=== PATIENT | female | born 1960 | race Caucasian/White ===

== ENCOUNTER → 2016-08-29 | Outpatient (CLI) | payer MEDICARE, OTHER | LOC: WI 15:42 | PROVIDERS: ATTEND Internal Medicine Medical Oncology | DX: Z12.31 Encounter for screening mammogram for malignant neoplasm of breast (principal) | CPT/HCPCS: 77067; G0202 ==

== ENCOUNTER → 2017-01-23 | Outpatient (CLI) | payer MEDICARE, OTHER ==
[2017-01-23 16:12] LABS: ABSOLUTE EOSINOPHILS # (AUTO) 0.2 10^3/uL (0.0-0.6); ABSOLUTE LYMPHOCYTES (AUTO) 1.1 10^3/uL (0.5-4.7); ABSOLUTE MONOCYTES (AUTO) 0.4 10^3/uL (0.1-1.4); ABSOLUTE NEUT (AUTO) 4.5 10^3/uL (1.7-8.2); BASOPHILS % (AUTO) 0.6 % (0-2); EOSINOPHILS % (AUTO) 2.6 % (0-6); HEMATOCRIT 36.6 % (36.0-47.0); HEMOGLOBIN 11.7 g/dL (12.0-15.5); HGB HCT DIFFERENCE -1.5; LYMPHOCYTES % (AUTO) 17.1 % (13-45); MEAN CORPUSCULAR HEMOGLOBIN 23.2 pg (27.0-33.4); MEAN CORPUSCULAR HGB CONC 31.9 g/dL (32.0-36.0); MEAN CORPUSCULAR VOLUME 73 fl (80-97); MONOCYTES % (AUTO) 7.1 % (3-13); RED BLOOD COUNT 5.04 10^6/uL (3.72-5.28); RED CELL DISTRIBUTION WIDTH 18.3 % (11.5-14.0); SEGMENTED NEUTROPHILS % (AUTO) 72.6 % (42-78); WHITE BLOOD COUNT 6.2 10^3/uL (4.0-10.5)
[2017-01-23 16:38] LABS: ALANINE AMINOTRANSFERASE 22 U/L (9-52); ALBUMIN 3.5 g/dL (3.5-5.0); ALKALINE PHOSPHATASE 107 U/L (38-126); ASPARTATE AMINO TRANSFERASE 35 U/L (14-36); BILIRUBIN,DIRECT 0.3 mg/dL (0.0-0.4); BILIRUBIN,TOTAL 0.5 mg/dL (0.2-1.3); BLOOD UREA NITROGEN 15 mg/dL (7-20); CREATININE RESULT 0.59 mg/dL (0.52-1.25); TOTAL PROTEIN 5.7 g/dL (6.3-8.2)
== END ==
LOC: GHH 16:05
PROVIDERS: ATTEND Family Medicine
DX: R78.81 Bacteremia (principal)
CPT/HCPCS: 80076; 82565; 84520; 85025

== ENCOUNTER → 2017-03-06 | Outpatient (CLI) | payer MEDICARE, OTHER ==
[2017-03-06 17:05] LABS: ABSOLUTE BASOPHILS # (AUTO) 0.1 10^3/uL (0.0-0.2); ABSOLUTE EOSINOPHILS # (AUTO) 0.2 10^3/uL (0.0-0.6); ABSOLUTE LYMPHOCYTES (AUTO) 1.3 10^3/uL (0.5-4.7); ABSOLUTE MONOCYTES (AUTO) 0.5 10^3/uL (0.1-1.4); ABSOLUTE NEUT (AUTO) 5.8 10^3/uL (1.7-8.2); BASOPHILS % (AUTO) 1.2 % (0-2); EOSINOPHILS % (AUTO) 2.1 % (0-6); HEMATOCRIT 32.3 % (36.0-47.0); HGB HCT DIFFERENCE -2.3; MEAN CORPUSCULAR HEMOGLOBIN 22.4 pg (27.0-33.4); MEAN CORPUSCULAR HGB CONC 31.1 g/dL (32.0-36.0); MEAN CORPUSCULAR VOLUME 72 fl (80-97); MONOCYTES % (AUTO) 6.9 % (3-13); RED BLOOD COUNT 4.49 10^6/uL (3.72-5.28); RED CELL DISTRIBUTION WIDTH 20.8 % (11.5-14.0); SEGMENTED NEUTROPHILS % (AUTO) 73.8 % (42-78); WHITE BLOOD COUNT 7.8 10^3/uL (4.0-10.5)
[2017-03-06 17:24] LABS: BLOOD UREA NITROGEN 11 mg/dL (7-20); CREATININE RESULT 0.55 mg/dL (0.52-1.25)
== END ==
LOC: RAD 16:51
PROVIDERS: ATTEND Surgery Plastic and Reconstructive Surgery
DX: M86.9 Osteomyelitis, unspecified (principal); T81.4XXA Infection following a procedure, initial encounter
CPT/HCPCS: 36415; 80202; 82565; 84520; 85025

== ENCOUNTER 2017-03-10 17:26 | Emergency (ER) | payer MEDICARE, OTHER ==
--- NOTE | 2017-03-10 20:03 | ER Document Report ---
ED General - General Chief Complaint: Other Stated Complaint: MEDICAL PORT ISSUES Time Seen by Provider: 03/10/17 19:18 Mode of Arrival: Ambulatory Information source: Patient TRAVEL OUTSIDE OF THE [place] IN LAST 30 DAYS: No - HPI Patient complains to provider of: Port-A-Cath malfunction Onset: This afternoon Onset/Duration: Sudden Quality of pain: No pain Notes: Patient is a 56-year-old female with a history of brain cancer who recently had brain surgery and is actively on chemo, who presents to the emergency room today stating that the home health nurse came out today and tried to change the needle access to her port and was unable to do so, advised her to come to the emergency room for evaluation, she denies any complaints at present time, she does report mild pain at the exit site to the port as they tried so many times to re-stick her today - Related Data Allergies/Adverse Reactions: codeine [Codeine] Allergy (Verified 03/10/17 17:30) morphine Allergy (Verified 03/10/17 17:30) Past Medical History - General Information source: Patient - Social History Smoking Status: Unknown if Ever Smoked Family History: Reviewed & Not Pertinent Patient has suicidal ideation: No Patient has homicidal ideation: No - Past Medical History Cardiac Medical History: Denies: Hx Heart Attack, Hx Hypertension Pulmonary Medical History: Denies: Hx Asthma Neurological Medical History: Denies: Hx Cerebrovascular Accident, Hx Seizures Renal/ Medical History: Denies: Hx Peritoneal Dialysis GI Medical History: Denies: Hx Hepatitis, Hx Hiatal Hernia, Hx Ulcer Infectious Medical History: Denies: Hx Hepatitis Past Surgical History: Reports: Hx Breast Surgery, Hx Mastectomy - lumpectomy, RT. Denies: Hx Open Heart Surgery, Hx Pacemaker - Immunizations Hx Diphtheria, Pertussis, Tetanus Vaccination: Yes Review of Systems - Review of Systems Constitutional: No symptoms reported EENT: No symptoms reported Cardiovascular: No symptoms reported Respiratory: No symptoms reported Gastrointestinal: No symptoms reported Genitourinary: No symptoms reported Female Genitourinary: No symptoms reported Musculoskeletal: No symptoms reported Skin: See HPI Hematologic/Lymphatic: No symptoms reported Neurological/Psychological: No symptoms reported -: Yes All other systems reviewed and negative Physical Exam - Vital signs Vitals: Temp Pulse Resp BP Pulse Ox 98.7 F 80 16 105/81 98 03/10/17 17:30 03/10/17 17:30 03/10/17 17:30 03/10/17 17:30 03/10/17 17:30 - Notes Notes: - General General appearance: Appears well, Alert In distress: None - HEENT Head: Normocephalic, Atraumatic Eyes: Normal Conjunctiva: Normal Extraocular movements intact: Yes Eyelashes: Normal Pupils: PERRL - Respiratory Respiratory status: No respiratory distress - Cardiovascular Rhythm: Regular - Abdominal Inspection: Normal - Back Back: Normal - Extremities General upper extremity: Normal inspection General lower extremity: Normal inspection - Neurological Neuro grossly intact: Yes Orientation: AAOx4 [place] Coma Scale Eye Opening: Spontaneous [place] Coma Scale Verbal: Oriented [place] Coma Scale Motor: Obeys Commands Gali Coma Scale Total: 15 - Psychological Associated symptoms: Normal affect, Normal mood - Skin Skin Temperature: Warm Skin Moisture: Dry Skin Color: Normal - Respiratory Respiratory status: Other - Subcutaneous Port-A-Cath noted in left anterior chest wall, small puncture wound overlying it, mild tenderness, no swelling, no erythema, no active bleeding or drainage Course - Re-evaluation Re-evalutation: 03/10/17 21:47 Nursing staff was able to access patient's port appropriately, saline was flushed through without difficulty, however were unable to draw blood off of it , however patient's port is functioning appropriately for her to receive medications at home, she was therefore discharged with instructions for follow- up and advised to return if any additional concerns, patient acknowledges understanding and agreement with this plan - Vital Signs Vital signs: Temp Pulse Resp BP Pulse Ox 98.5 F 75 18 110/72 100 03/10/17 20:07 03/10/17 20:07 03/10/17 20:07 03/10/17 20:07 03/10/17 20:07 Discharge - Discharge Clinical Impression: Portacath in place Condition: Stable Disposition: HOME, SELF-CARE Instructions: Subcutaneous IV Port Placement ([facility]) Additional Instructions: Follow up with your primary care provider in one to 2 days. Return to the emergency room immediately if symptoms worsen or any additional concerns.
[2017-03-10 20:08] VITALS: BP 110/72
== END 2017-03-10 20:06 | disposition home or self-care (01) ==
LOC: ER 17:26
DX: Z45.2 Encounter for adjustment and management of vascular access device (principal); C71.9 Malignant neoplasm of brain, unspecified; Z98.890 Other specified postprocedural states; Z90.11 Acquired absence of right breast and nipple; Z88.6 Allergy status to analgesic agent
CPT/HCPCS: 36591; 99283

== ENCOUNTER → 2017-04-12 | Outpatient (CLI) | payer MEDICARE, OTHER ==
--- NOTE | 2017-04-12 17:50 | RADIOLOGY REPORT (SQ) ---
EXAM DESCRIPTION: MRI HEAD COMBO COMPLETED DATE/TIME: 04/12/2017 5:34 pm REASON FOR STUDY: BRAIN METASTASES C79.31 SECONDARY MALIGNANT NEOPLASM OF BRAIN COMPARISON: 04/25/2016, 11/17/2015, 04/09/2014 MRI brain TECHNIQUE: Multiplanar imaging includes noncontrasted T1, T2, FLAIR, diffusion with ADC map and post gadolinium contrast T1 sequences. Images stored on PACS. CONTRAST TYPE AND DOSE: 20 mL Multihance. RENAL FUNCTION: GFR > 60. LIMITATIONS: None. FINDINGS: ANATOMY: No congenital anomalies. Normal vascular flow voids. Pituitary fossa normal. CSF SPACES: Normal in size and contour. No hemorrhage. CEREBRUM: Since the prior brain MRI 04/17/2016, patient has undergone left occipital craniotomy with resection of all 5 x 3 cm left occipital brain parenchymal metastatic lesion. On the current exam, t here is now diffuse dural enhancement and a thick rind of tumor in the operative cavity measuring abo ut 1 cm in thickness. There is a left temporal lobe metastatic lesion which was 2.8 x 2.4 cm in size on 04/25/2016. This n ow measures 6.4 x 3.9 cm in size, with vasogenic edema. Mild local mass effect with flattening of th e left temporal horn lateral ventricle. No midline shift. A right frontal brain parenchymal metastatic lesion was 1.3 x 1.1 cm on 04/25/2016. This now measure s 2.5 x 2.3 cm in size, with surrounding vasogenic edema and mild local mass effect with sulcal effac ement. No other brain parenchymal metastatic lesions are identified. Normal enhancement of the dural venous sinuses and vascular structures. POSTERIOR FOSSA: No signal alteration. No hemorrhage. No edema, masses, or mass effect. Internal arnel tory canals, cerebellopontine angles, mastoids normal. No enhancing lesions. No abnormal enhancement post contrast. DIFFUSION IMAGING: Negative for acute or subacute infarction. ORBITS: No masses. Globes normal. PARANASAL SINUSES: No fluid levels. Mucosa normal. OTHER: No other significant finding. IMPRESSION: Progression of intracranial disease as above. EVIDENCE OF ACUTE STROKE: NO. TECHNICAL DOCUMENTATION: JOB ID: [id number] [employer]- All Rights Reserved
== END ==
LOC: RAD 15:54
PROVIDERS: ATTEND Internal Medicine Medical Oncology
DX: C79.31 Secondary malignant neoplasm of brain (principal)
CPT/HCPCS: 70553

== ENCOUNTER 2017-04-19 04:37 | Emergency (ER) | payer MEDICARE, OTHER ==
[2017-04-19] MEDS ORDERED: HYDROMORPHONE HCL INJ/PF 2 MG/ML AMPULE IV ONE (05:09)
[2017-04-19] MEDS ORDERED: NORMAL SALINE 1000 ML 1,000 ML IV ONE (05:11)
--- NOTE | 2017-04-19 05:13 | ER Document Report ---
ED Medical Screen (RME) - General Chief Complaint: Abdominal Pain Stated Complaint: NAUSEA/VOMITING Time Seen by Provider: 04/19/17 05:08 Notes: 56-year-old female comes by EMS for chief complaint of upper abdominal pain, specifically in her right upper abdomen that radiates around to her back. She states she has had intermittent sharp pains with vomiting episodes for the past 4 days. Only surgical history is brain tumor removal. History of breast cancer with brain metastasis. She is not on chemotherapy or radiation. She denies fever. She denies black or bloody stools. TRAVEL OUTSIDE OF THE [place] IN LAST 30 DAYS: No - Related Data Allergies/Adverse Reactions: codeine [Codeine] Allergy (Verified 03/10/17 17:30) morphine Allergy (Verified 03/10/17 17:30) Past Medical History - Social History Chew tobacco use (# tins/day): No Frequency of alcohol use: None Drug Abuse: None - Past Medical History Cardiac Medical History: Denies: Hx Heart Attack, Hx Hypertension Pulmonary Medical History: Denies: Hx Asthma Neurological Medical History: Denies: Hx Cerebrovascular Accident, Hx Seizures Renal/ Medical History: Denies: Hx Peritoneal Dialysis GI Medical History: Denies: Hx Hepatitis, Hx Hiatal Hernia, Hx Ulcer Infectious Medical History: Denies: Hx Hepatitis Past Surgical History: Reports: Hx Breast Surgery, Hx Mastectomy - lumpectomy, RT. Denies: Hx Open Heart Surgery, Hx Pacemaker - Immunizations Hx Diphtheria, Pertussis, Tetanus Vaccination: Yes Physical Exam - Vital signs Vitals: Temp Pulse Resp BP Pulse Ox 97.4 F 61 18 128/77 H 98 04/19/17 04:57 04/19/17 04:57 04/19/17 04:57 04/19/17 04:57 04/19/17 04:57 - General General appearance: Appears well In distress: None - Abdominal Tenderness: Tender - Tender in the epigastric and right upper quadrant areas on abdominal exam, otherwise unremarkable abdominal exam Course - Vital Signs Vital signs: Temp Pulse Resp BP Pulse Ox 97.4 F 61 18 128/77 H 98 04/19/17 04:57 04/19/17 04:57 04/19/17 04:57 04/19/17 04:57 04/19/17 04:57
[2017-04-19 05:35] LABS: ABSOLUTE BASOPHILS # (AUTO) 0.1 10^3/uL (0.0-0.2); ABSOLUTE EOSINOPHILS # (AUTO) 0.2 10^3/uL (0.0-0.6); ABSOLUTE LYMPHOCYTES (AUTO) 1.1 10^3/uL (0.5-4.7); ABSOLUTE MONOCYTES (AUTO) 0.8 10^3/uL (0.1-1.4); ABSOLUTE NEUT (AUTO) 10.3 10^3/uL (1.7-8.2); BASOPHILS % (AUTO) 0.6 % (0-2); EOSINOPHILS % (AUTO) 1.6 % (0-6); HEMATOCRIT 37.8 % (36.0-47.0); HEMOGLOBIN 12.5 g/dL (12.0-15.5); HGB HCT DIFFERENCE -0.3; MEAN CORPUSCULAR HEMOGLOBIN 24.8 pg (27.0-33.4); MEAN CORPUSCULAR HGB CONC 33.2 g/dL (32.0-36.0); MEAN CORPUSCULAR VOLUME 75 fl (80-97); MONOCYTES % (AUTO) 6.1 % (3-13); RED BLOOD COUNT 5.06 10^6/uL (3.72-5.28); RED CELL DISTRIBUTION WIDTH 19.9 % (11.5-14.0); SEGMENTED NEUTROPHILS % (AUTO) 82.7 % (42-78); WHITE BLOOD COUNT 12.5 10^3/uL (4.0-10.5)
[2017-04-19 05:53] LABS: ALANINE AMINOTRANSFERASE 35 U/L (9-52); ALBUMIN 3.4 g/dL (3.5-5.0); ALKALINE PHOSPHATASE 119 U/L (38-126); ANION GAP 12 (5-19); ASPARTATE AMINO TRANSFERASE 29 U/L (14-36); BILIRUBIN,DIRECT 0.5 mg/dL (0.0-0.4); BILIRUBIN,TOTAL 0.6 mg/dL (0.2-1.3); BLOOD UREA NITROGEN 14 mg/dL (7-20); CALCIUM 9.4 mg/dL (8.4-10.2); CARBON DIOXIDE 24 mmol/L (22-30); CHLORIDE 104 mmol/L (98-107); GLUCOSE 114 mg/dL (75-110); POTASSIUM 4.2 mmol/L (3.6-5.0); SODIUM 140.4 mmol/L (137-145); TOTAL PROTEIN 5.6 g/dL (6.3-8.2)
--- NOTE | 2017-04-19 06:55 | ER Document Report ---
ED GI/ - General Mode of Arrival: Ambulatory Information source: Patient TRAVEL OUTSIDE OF THE [place] IN LAST 30 DAYS: No <FARTUN LOWE - Last Filed: 04/19/17 10:17> <JIM SHAHID - Last Filed: 04/19/17 17:28> <LEANN KILPATRICK - Last Filed: 04/20/17 06:20> - General Chief Complaint: Abdominal Pain Stated Complaint: NAUSEA/VOMITING Time Seen by Provider: 04/19/17 05:08 Notes: Patient is a 56 year old female with a PMH significant for breast cancer with metastasis to the brain and liver that presents to the emergency department today with complaints of right upper quadrant abdominal pain. Patient has some difficulty explaining things consistent with brain metastases so some history is being given by her mother at bedside. 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 Patient's chemotherapy was stopped in May secondary to this infection, and her wound not healing. Mother at bedside states that the patient has had intermittent abdominal pain off and on for the last week and she vomited once 1 week ago. Patient states she had nausea now but no vomiting. (FARTUN LOWE) - Related Data Allergies/Adverse Reactions: codeine [Codeine] Allergy (Verified 03/10/17 17:30) morphine Allergy (Verified 03/10/17 17:30) Home Medications: Current Home Medications Cranberry Conc/C/Bacill Coag [Cranberry Tablet] 1 each PO BID 04/19/17 [History] Ferrous Sulfate 65 mg PO DAILY 04/19/17 [History] Past Medical History - General Information source: Patient - Social History Smoking Status: Never Smoker Cigarette use (# per day): No Chew tobacco use (# tins/day): No Frequency of alcohol use: None Drug Abuse: None Lives with: Family Family History: Reviewed & Not Pertinent Patient has suicidal ideation: No Patient has homicidal ideation: No - Medical History Medical History: Negative Malignancy Medical History: Reports: Other - History of breast cancer with metastasis to the brain, liver Past Surgical History: Reports: Hx Breast Surgery, Hx Mastectomy - lumpectomy, RT, Other - Brain tumor debulking, cranial bone flap removal x2 - Immunizations Hx Diphtheria, Pertussis, Tetanus Vaccination: Yes <FARTUN LOWE - Last Filed: 04/19/17 10:17> Review of Systems - Review of Systems Constitutional: No symptoms reported EENT: No symptoms reported Cardiovascular: No symptoms reported Respiratory: No symptoms reported Gastrointestinal: See HPI, Abdominal pain, Nausea. denies: Vomiting Genitourinary: No symptoms reported Female Genitourinary: No symptoms reported Musculoskeletal: No symptoms reported Skin: No symptoms reported Hematologic/Lymphatic: No symptoms reported Neurological/Psychological: No symptoms reported -: Yes All other systems reviewed and negative <FARTUN LOWE - Last Filed: 04/19/17 10:17> Physical Exam <FARTUN LOWE - Last Filed: 04/19/17 10:17> <JIM SHAHID - Last Filed: 04/19/17 17:28> <LEANN KILPATRICK - Last Filed: 04/20/17 06:20> - Vital signs Vitals: Resp Pulse Ox 15 100 04/19/17 04:54 04/19/17 04:54 - Notes Notes: Physical Exam: General: Alert, chronically ill appearing. HEENT: Normocephalic. Atraumatic. PERRL. Extraocular movements intact. Oropharynx clear. Bandage around head consistent with healing surgical wound. Neck: Supple. Non-tender. Respiratory: No respiratory distress. Clear and equal breath sounds bilaterally. Cardiovascular: Regular rate and rhythm. Abdominal: Obese. Right upper quadrant tenderness with palpation. No distension. Normal Bowel Sounds. Back: Non-tender. No deformity or step off. Extremities: Moves all four extremities. Upper extremities: Normal inspection. Normal ROM. Lower extremities: Normal inspection. No edema. Normal ROM. Neurological: Normal cognition. AAOx4. Normal speech. Slight difficulty with explaining history consistent with brain metastasis. Psychological: Normal affect. Normal Mood. Skin: Warm. Dry. Normal color. (FARTUN LOWE) Course - Laboratory Result Diagrams: 04/19/17 05:20 04/19/17 05:20 <FARTUN LOWE - Last Filed: 04/19/17 10:17> - Laboratory Result Diagrams: 04/19/17 05:20 04/19/17 05:20 <JIM SHAHID - Last Filed: 04/19/17 17:28> - Laboratory Result Diagrams: 04/19/17 05:20 04/19/17 05:20 - Diagnostic Test Radiology reviewed: Image reviewed, Reports reviewed - Gallbladder ultrasound shows possible sludge or mass obstructing the gallbladder. There is no dilatation of common bile duct or hepatic ducts. HIDA scan showed no uptake into the gallbladder at 1 hour and at 2 hours. This is felt due to complete obstruction of the gallbladder neck. - EKG Interpretation by Me EKG shows normal: Sinus rhythm, [place], Intervals, QRS Complexes, ST-T Waves Rate: Normal - 60 Rhythm: NSR - Consults Dr. Haq Time consulted: 13:50 Consulted provider: other - Requested transfer the patient to another facility due to potential for removal of the gallbladder requiring resection of surrounding tissue if this is a cancerous obstructive process. Dr. Jackson Time consulted: 14:05 Consulted provider: other - We will except on behalf of Dr. Feldman's service at [facility] as an ER to ER transfer. Dr. Odell Ho Time consulted: 14:35 Consulted provider: other - ER physician, will except as an ED to ED transfer. <LEANN KILPATRICK - Last Filed: 04/20/17 06:20> - Re-evaluation Re-evalutation: 04/19/17 17:28 Did not receive sign out on this patient. Patient currently is waiting air transport is currently here. Patient's vital signs are stable patient looks to be in no obvious distress patient looks stable for air transport to [facility]. (JIM SHAHID) - Vital Signs Vital signs: Temp Pulse Resp BP Pulse Ox 97.4 F 61 16 107/61 97 04/19/17 04:57 04/19/17 04:57 04/19/17 17:18 04/19/17 17:18 04/19/17 17:18 - Laboratory Laboratory results interpreted by me: 04/19/17 04/19/17 04/19/17 05:20 05:20 09:10 WBC 12.5 H MCV 75 L MCH 24.8 L RDW 19.9 H Seg Neutrophils % 82.7 H Lymphocytes % 9.0 L Absolute Neutrophils 10.3 H Glucose 114 H Direct Bilirubin 0.5 H Total Protein 5.6 L Albumin 3.4 L Ur Leukocyte Esterase MODERATE H Discharge <FARTUN LOWE - Last Filed: 04/19/17 10:17> <JIM SHAHID - Last Filed: 04/19/17 17:28> <LEANN KILPATRICK - Last Filed: 04/20/17 06:20> - Discharge Clinical Impression: Gallbladder obstruction Condition: Stable Disposition: [place] Referrals: CHRISTOPH WINSTON, FINANCIAL WRITER [Primary Care Provider] - Follow up as needed Scribe Attestation: 04/19/17 08:09 I personally performed the services described in the documentation, reviewed and edited the documentation which was dictated to the scribe in my presence, and it accurately records my words and actions. (LEANN KILPATRICK) Scribe Documentation - Scribe Written by Yonie:: Ana Santiago, 04/19/2017 [id number] acting as scribe for :: Tj <FARTUN LOWE - Last Filed: 04/19/17 10:17>
--- NOTE | 2017-04-19 07:09 | RADIOLOGY REPORT (SQ) ---
EXAM DESCRIPTION: U/S ABDOMEN LIMITED W/O DOP COMPLETED DATE/TIME: 04/19/2017 6:42 am REASON FOR STUDY: RUQ and epigastric pain, vomiting COMPARISON: None. TECHNIQUE: Dynamic and static grayscale images acquired of the abdomen and recorded on PACS. Additio nal selected color Doppler and spectral images recorded. LIMITATIONS: Body habitus. FINDINGS: PANCREAS: No masses. Visualized pancreatic duct normal caliber. Tail is obscured. LIVER: No masses. Hepatic steatosis. LIVER VASCULATURE: Normal directional flow of the main portal vein and hepatic veins. GALLBLADDER: Heterogeneous material/lesion occludes the gallbladder. Based on Doppler ultrasound, th ere is possible small vascularity within the gallbladder. ULTRASOUND-DETECTED MARTINEZ'S SIGN: Negative. INTRAHEPATIC DUCTS AND COMMON DUCT: 0.5 cm diameter CBD and intrahepatic ducts normal caliber. No stacia ling defects. INFERIOR VENA CAVA: Normal flow. AORTA: No aneurysm. RIGHT KIDNEY: Normal size. Normal echogenicity. No solid or suspicious masses. No hydronephrosis. No calcifications. PERITONEAL AND RIGHT PLEURAL SPACE: No ascites or effusions. OTHER: No other significant findings. IMPRESSION: Gallbladder occlusion due to sludge and/ or mass ; cannot exclude a gallbladder malignan cy. Multiphase pre and postcontrast CT of the abdomen recommended. TECHNICAL DOCUMENTATION: JOB ID: [id number] [facility]- All Rights Reserved
[2017-04-19 09:44] LABS: APPEARANCE,URINE CLEAR; BILIRUBIN,URINE NEGATIVE (NEGATIVE); GLUCOSE, URINE NEGATIVE (NEGATIVE); KETONES,URINE NEGATIVE (NEGATIVE); LEUKOCYTE ESTERASE,URINE MODERATE (NEGATIVE); NITRITE,URINE NEGATIVE (NEGATIVE); PROTEIN,URINE NEGATIVE (NEGATIVE); URINE SPECIFIC GRAVITY 1.013; UROBILINOGEN,URINE NEGATIVE mg/dL (<2.0)
--- NOTE | 2017-04-19 13:29 | RADIOLOGY REPORT (SQ) ---
EXAM DESCRIPTION: NM HIDA SCAN COMPLETED DATE/TIME: 04/19/2017 1:05 pm REASON FOR STUDY: obstructed gall bladder COMPARISON: Abdominal ultrasound 04/19/2017 RADIONUCLIDE AND DOSE: DOSAGE RADIONUCLIDE: 5 millicuries Tc99m Mebrofenin. 1 mCi mebrofenin booste r dose. DOSAGE MORPHINE: Not required. The route of agent administration: Intravenous TECHNIQUE: Serial imaging right upper quadrant up to 60 minutes following injection of radionuclide. Patient imaged AP and Right Lateral. There was nonvisualization of gallbladder at 60 minutes. Patient was reinjected, and imaged 90 minut es after the reinjection LIMITATIONS: None. FINDINGS: LIVER: Normal visualization without areas of photopenia. The majority of injected agent c lears the liver by 60 minutes. INTRA-HEPATIC BILE DUCTS: Intrahepatic bile ducts identified by 20 minutes COMMON BILE DUCT: Common bile duct identified by 14 minutes GALLBLADDER: Not visualized on initial 60 minutes. Patient was reinjected with a 1 mCi booster dose, repeat imaging 90 minutes after injection fails to depict the gallbladder. OTHER: No other significant finding. IMPRESSION: Nonvisualization of the gallbladder on initial 60 minutes images and, nonvisualization o f the gallbladder on delayed imaging after a booster dose of mebrofenin. This report was called to Dr. Spencer in the emergency room TECHNICAL DOCUMENTATION: JOB ID: [id number] [employer]- All Rights Reserved
[2017-04-19 16:54] VITALS: BP 107/61
--- NOTE | 2017-04-19 19:34 | EKG REPORT ---
SEVERITY:- NORMAL ECG - SINUS RHYTHM : Confirmed by: Josephine Noe MD 19-Apr-2017 19:32:55
== END 2017-04-19 17:35 | disposition short-term general hospital (02) ==
LOC: ER 04:37
DX: K82.0 Obstruction of gallbladder (principal); R10.9 Unspecified abdominal pain; Z88.6 Allergy status to analgesic agent; Z85.3 Personal history of malignant neoplasm of breast; Z85.841 Personal history of malignant neoplasm of brain
CPT/HCPCS: 93005; 99285; 96361; 96374; 36415; 87086; 83690; 85025; 87088; 80053; 81001; 87186; 76705; 78226; 93010; A9537; J1170; J7030; Q9969

== ENCOUNTER 2017-04-20 22:03 | Emergency (ER) | payer MEDICARE, OTHER ==
[2017-04-20] MEDS ORDERED: ONDANSETRON HCL INJ/PF 4 MG/2 ML SDV IV ONE (23:23)
[2017-04-20] MEDS ORDERED: HYDROMORPHONE HCL INJ/PF 2 MG/ML AMPULE IV ONE (23:23)
[2017-04-20] MEDS ORDERED: NORMAL SALINE 1000 ML 1,000 ML IV ONE (23:23)
[2017-04-20] MEDS ORDERED: CEFTRIAXONE 1 GM/D5W RTU 1 GM/50 ML RTUPB IV ONE (23:23)
--- NOTE | 2017-04-20 23:36 | ER Document Report ---
ED General - General Mode of Arrival: Medic Information source: Patient, Relative TRAVEL OUTSIDE OF THE [place] IN LAST 30 DAYS: No <PEGGY HUTTON - Last Filed: 04/21/17 04:45> <ABRIL MARTIN - Last Filed: 04/21/17 05:07> - General Chief Complaint: Abdominal Pain >50 Stated Complaint: ABDOMINAL PAIN Time Seen by Provider: 04/20/17 22:53 Notes: Patient is a 56 year old female with a history of metastatic breast cancer presents to the emergency department via EMS accompanined by family complaining of abdominal pain with associated symptoms of nausea, vomiting and chills. Patient was last seen in the emergency department yesterday with similar symptoms and a HIDA test was performed. There was found to be a blockage in her gall bladder and the patient was sent to [facility]. Patient was fed, watched, and released from [facility] after not seeing a blockage from another HIDA scan today. At around 18:00 the patient symptoms have returned and worsened. EMS gave patient 8 mg of Zofran prior to arrival. (PEGGY HUTTON) - Related Data Allergies/Adverse Reactions: acetaminophen [From Tylenol] Allergy (Verified 04/20/17 22:13) codeine [Codeine] Allergy (Verified 04/20/17 22:13) morphine Allergy (Verified 04/20/17 22:13) Past Medical History - General Information source: Patient, Relative - Social History Smoking Status: Unknown if Ever Smoked Cigarette use (# per day): No Chew tobacco use (# tins/day): No Smoking Education Provided: No Family History: Reviewed & Not Pertinent Past Surgical History: Reports: Hx Breast Surgery, Hx Mastectomy - lumpectomy, RT, Other - Brain tumor debulking, cranial bone flap removal x2 - Immunizations Hx Diphtheria, Pertussis, Tetanus Vaccination: Yes <PEGGY HUTTON - Last Filed: 04/21/17 04:45> Review of Systems - Review of Systems Constitutional: See HPI, Chills EENT: No symptoms reported Cardiovascular: No symptoms reported Respiratory: No symptoms reported Gastrointestinal: See HPI, Abdominal pain, Nausea, Vomiting Genitourinary: No symptoms reported Female Genitourinary: No symptoms reported Musculoskeletal: No symptoms reported Skin: No symptoms reported Hematologic/Lymphatic: No symptoms reported Neurological/Psychological: No symptoms reported -: Yes All other systems reviewed and negative <PEGGY HUTTON - Last Filed: 04/21/17 04:45> Physical Exam <PEGGY HUTTON - Last Filed: 04/21/17 04:45> <ABRIL MARTIN - Last Filed: 04/21/17 05:07> - Vital signs Vitals: Temp Pulse Resp BP Pulse Ox 97.6 F 58 L 24 H 134/77 H 100 04/20/17 22:13 04/20/17 22:13 04/20/17 22:13 04/20/17 22:13 04/20/17 22:13 - Notes Notes: GENERAL: Alert, Appears uncomfortable. HEAD: Scarring on skull is consistent to surgical history. EYES: Pupils equal, round, and reactive to light. Extraocular movements intact. ENT: Oral mucosa moist, tongue midline. NECK: Full range of motion. Supple. Trachea midline. LUNGS: Clear to auscultation bilaterally, no wheezes, rales, or rhonchi. No respiratory distress. HEART: Regular rate and rhythm. No murmurs, gallops, or rubs. ABDOMEN: RUQ tender to palpation. Negative Schneider's Sign. Non-distended. Bowel sounds present in all 4 quadrants. EXTREMITIES: Moves all 4 extremities spontaneously. No edema, radial and dorsalis pedis pulses 2/4 bilaterally. No cyanosis. NEUROLOGICAL: Alert and oriented x3. Normal speech. PSYCH: Normal affect, normal mood. SKIN: Warm, dry, normal turgor. Scarring on skull is consistent to surgical history. (PEGGY HUTTON) Course - Laboratory Result Diagrams: 04/20/17 23:50 04/20/17 23:50 - Consults Dr. Roger Time consulted: 02:18 - Rusty operations inspector, recommended patient be returned to [facility] due to maglignat mass obstruction in the bile duct. Dr. English Time consulted: 02:34 - States patient was seen with the Acute Care Trauma Team. Agrees that patient should be transferred. Dr. Forde Time consulted: 03:00 - Dr. Forde agrees that patient needs to be transferred ED to ED. Also stated needed to talk to physcian at this time. <PEGGY HUTTON - Last Filed: 04/21/17 04:45> - Laboratory Result Diagrams: 04/20/17 23:50 04/20/17 23:50 <ABRIL MARTIN - Last Filed: 04/21/17 05:07> - Re-evaluation Re-evalutation: 04/21/17 03:16 CBC shows persistent but stable leukocytosis of 12.3, platelets normal, CMP shows slightly low potassium at 3.4 otherwise unremarkable, LFTs normal with the exception of minimally elevated alkaline phosphatase of 138, No evidence of acute obstruction, abdominal ultrasound once again reveals gallbladder sludge versus mass, common bile duct and intrahepatic ducts are of normal caliber, no filling defects. Once again discussed patient with who continues to feel that it is inappropriate to resect a gallbladder that may have a mass in it at this hospital. Dr. Ibarra recommends transfer back to [facility]. I then discuss this first with surgical oncology then with trauma/acute care service then was recommended to do an ER to ER transfer. Spoke with Dr. Altamirano in the emergency department who accepted the patient to his service. Patient and family are agreeable to transfer back to [facility]. Pain is controlled, transport will be here around 8:00 in the morning. 04/21/17 05:07 Pre-hypertension will continue to be followed at [facility]. (ABRIL MARTIN) - Vital Signs Vital signs: Temp Pulse Resp BP Pulse Ox 97.6 F 68 13 132/78 H 94 04/21/17 04:32 04/21/17 04:32 04/21/17 04:32 04/21/17 04:32 04/21/17 04:32 - Laboratory Laboratory results interpreted by me: 04/20/17 04/20/17 23:50 23:50 WBC 12.3 H MCV 76 L MCH 24.5 L RDW 19.5 H Seg Neutrophils % 87.5 H Lymphocytes % 6.6 L Absolute Neutrophils 10.7 H Potassium 3.4 L Glucose 163 H Alkaline Phosphatase 138 H Total Protein 6.2 L Discharge <PEGGY HUTTON - Last Filed: 04/21/17 04:45> <ABRIL MARTIN - Last Filed: 04/21/17 05:07> - Discharge Clinical Impression: Recurrent biliary colic, Gallbladder mass, Metastatic breast cancer, Prehypertension Condition: Fair Disposition: [facility] Scribe Attestation: 04/21/17 05:07 I personally performed the services described in the documentation, reviewed and edited the documentation which was dictated to the scribe in my presence, and it accurately records my words and actions. (ABRIL MARTIN) Scribe Documentation - Scribe Written by Brianibe:: Ana Schroeder, 04/20/2017 23:59 acting as scribe for :: Kole <PEGGY HUTTON - Last Filed: 04/21/17 04:45>
[2017-04-21 00:13] LABS: ABSOLUTE BASOPHILS # (AUTO) 0.1 10^3/uL (0.0-0.2); ABSOLUTE LYMPHOCYTES (AUTO) 0.8 10^3/uL (0.5-4.7); ABSOLUTE MONOCYTES (AUTO) 0.6 10^3/uL (0.1-1.4); ABSOLUTE NEUT (AUTO) 10.7 10^3/uL (1.7-8.2); BASOPHILS % (AUTO) 0.4 % (0-2); EOSINOPHILS % (AUTO) 0.2 % (0-6); HEMATOCRIT 39.7 % (36.0-47.0); HEMOGLOBIN 12.9 g/dL (12.0-15.5); LYMPHOCYTES % (AUTO) 6.6 % (13-45); MEAN CORPUSCULAR HEMOGLOBIN 24.5 pg (27.0-33.4); MEAN CORPUSCULAR HGB CONC 32.4 g/dL (32.0-36.0); MEAN CORPUSCULAR VOLUME 76 fl (80-97); MONOCYTES % (AUTO) 5.3 % (3-13); RED BLOOD COUNT 5.26 10^6/uL (3.72-5.28); RED CELL DISTRIBUTION WIDTH 19.5 % (11.5-14.0); SEGMENTED NEUTROPHILS % (AUTO) 87.5 % (42-78); WHITE BLOOD COUNT 12.3 10^3/uL (4.0-10.5)
[2017-04-21 00:27] LABS: ALANINE AMINOTRANSFERASE 37 U/L (9-52); ALBUMIN 3.9 g/dL (3.5-5.0); ALKALINE PHOSPHATASE 138 U/L (38-126); ANION GAP 17 (5-19); ASPARTATE AMINO TRANSFERASE 27 U/L (14-36); BILIRUBIN,DIRECT 0.4 mg/dL (0.0-0.4); BILIRUBIN,TOTAL 0.7 mg/dL (0.2-1.3); BLOOD UREA NITROGEN 13 mg/dL (7-20); CALCIUM 9.8 mg/dL (8.4-10.2); CARBON DIOXIDE 24 mmol/L (22-30); CHLORIDE 103 mmol/L (98-107); CREATININE RESULT 0.71 mg/dL (0.52-1.25); GLUCOSE 163 mg/dL (75-110); LIPASE 143.4 U/L (23-300); POTASSIUM 3.4 mmol/L (3.6-5.0); SODIUM 143.5 mmol/L (137-145); TOTAL PROTEIN 6.2 g/dL (6.3-8.2)
--- NOTE | 2017-04-21 01:30 | RADIOLOGY REPORT (SQ) ---
EXAM DESCRIPTION: U/S ABDOMEN LIMITED W/O DOP COMPLETED DATE/TIME: 04/21/2017 1:11 am REASON FOR STUDY: recurrent RUQ and vomiting COMPARISON: None. TECHNIQUE: Dynamic and static grayscale images acquired of the abdomen and recorded on PACS. Additio nal selected color Doppler and spectral images recorded. LIMITATIONS: None. FINDINGS: PANCREAS: Obscured. LIVER: No masses. Focal hepatic steatosis adjacent to the gallbladder fossa. LIVER VASCULATURE: Normal directional flow of the main portal vein and hepatic veins. GALLBLADDER: Mildly echogenic material occludes the gallbladder ; minimal vascularity demonstrated on Doppler sonogram. ULTRASOUND-DETECTED MARTINEZ'S SIGN: Negative. INTRAHEPATIC DUCTS AND COMMON DUCT: CBD and intrahepatic ducts normal caliber. No filling defects. INFERIOR VENA CAVA: Normal flow. AORTA: No aneurysm. RIGHT KIDNEY: Normal size. Normal echogenicity. 1.5 cm avascular hypoechoic ovoid lesion of the rig ht interpolar kidney probably due to a hemorrhagic cyst not definitively characterized. PERITONEAL AND RIGHT PLEURAL SPACE: No ascites or effusions. OTHER: No other significant findings. IMPRESSION: 1. Gallbladder sludge/mass. No significant interval change compared with exam from 2 d ays prior. 2. Likely hemorrhagic cyst of the right kidney measures 1.5 cm ; cannot exclude other ne oplasm. 3. Obscured pancreas. RECOMMENDATION: Dynamic contrast CT or MRI of the abdomen. TECHNICAL DOCUMENTATION: JOB ID: [id number]- All Rights Reserved
[2017-04-21] MEDS ORDERED: HYDROMORPHONE HCL INJ/PF 2 MG/ML AMPULE IV ONE ×2 (01:32→03:57)
[2017-04-21] MEDS ORDERED: HYDROMORPHONE HCL INJ/PF 2 MG/ML AMPULE ONE (04:01)
[2017-04-21] MEDS ORDERED: HYDROMORPHONE HCL INJ/PF 2 MG/ML AMPULE IV PRN (08:12)
[2017-04-21] MEDS ORDERED: ONDANSETRON HCL INJ/PF 4 MG/2 ML SDV IV PRN (08:13)
[2017-04-21 09:43] LABS: APPEARANCE,URINE SLIGHTLY-CLOUDY; BILIRUBIN,URINE NEGATIVE (NEGATIVE); GLUCOSE, URINE NEGATIVE (NEGATIVE); KETONES,URINE 80 mg/dL (NEGATIVE); LEUKOCYTE ESTERASE,URINE SMALL (NEGATIVE); NITRITE,URINE POSITIVE (NEGATIVE); PROTEIN,URINE 30 mg/dL (NEGATIVE); URINE SPECIFIC GRAVITY 1.026; UROBILINOGEN,URINE NEGATIVE mg/dL (<2.0)
[2017-04-21 12:40] VITALS: BP 125/70
== END 2017-04-21 12:30 | disposition short-term general hospital (02) ==
LOC: ER 22:03
DX: K80.50 Calculus of bile duct without cholangitis or cholecystitis without obstruction (principal); K82.9 Disease of gallbladder, unspecified; C50.919 Malignant neoplasm of unspecified site of unspecified female breast; C79.9 Secondary malignant neoplasm of unspecified site; R11.2 Nausea with vomiting, unspecified; R10.9 Unspecified abdominal pain
CPT/HCPCS: 36591; 96376; 99285; 96361; 96375; 96365; 36415; 87040; 83690; 85025; 80053; 81001; 76705; J1170; J2405; J7030; J0696